=== PATIENT | female | born 1960 | race Hispanic/Latino ===

== ENCOUNTER → 2017-10-27 | Outpatient (CLI) | payer OTHER | END | disposition home or self-care (01) | LOC: RAH 12:03 | PROVIDERS: ATTEND Family Medicine | DX: I10 Essential (primary) hypertension (principal) | CPT/HCPCS: 71046 ==

== ENCOUNTER → 2017-11-01 | Outpatient (CLI) | payer OTHER | END | disposition home or self-care (01) | LOC: RAH 13:44 → EDUNIT# 15:40 | PROVIDERS: ATTEND Family Medicine | DX: Z12.31 Encounter for screening mammogram for malignant neoplasm of breast (principal) | CPT/HCPCS: 77067 ==

== ENCOUNTER 2018-10-27 22:52 | Emergency (ER) | payer OTHER ==
[~2018-10-27 22:52] MED LIST: ACET1TAB27 PO; ALPR-412 PO; CETI10TA86 PO; LEVO50TA11 PO; ONDA8TAB11 PO; QUET100T70 PO; RANI150T7 PO
[2018-10-27] MEDS ORDERED: ONDANSETRON HCL 4 MG/2 ML VIAL ONE (22:59)
[2018-10-27] MEDS ORDERED: MORPHINE SULFATE 4 MG/1ML SYG ONE (22:59)
[2018-10-27] MEDS ORDERED: SODIUM CHLORIDE 0.9% 1000ML 1,000 ML IV ONE (23:00)
[2018-10-27 23:23] LABS: BASOPHILS % (AUTO) 1.3 % (0.0-5.0); CREATININE 0.8 mg/dL (0.5-1.5); EOSINOPHILS % (AUTO) 1.2 % (0.0-8.0); HEMATOCRIT 38.4 % (36-48); LYMPHOCYTES % (AUTO) 30.1 % (21.0-51.0); MEAN CORPUSCULAR HEMOGLOBIN 28.9 pg (27.0-33.0); MEAN CORPUSCULAR HGB CONC 32.9 g/dL (32.0-36.0); MEAN CORPUSCULAR VOLUME 87.8 fL (79-99); MONOCYTES % (AUTO) 6.3 % (3.0-13.0); NEUTROPHILS % (AUTO) 61.1 % (40.0-77.0); PLATELET COUNT (AUTO) 369 K/uL (130-400); RED BLOOD CELL COUNT(AUTO) 4.37 MIL/uL (4.00-5.50); RED CELL DISTRIBUTION WIDTH 18.5 % (11.0-15.5); WHITE BLOOD COUNT (AUTO) 12.4 K/uL (4.8-10.8)
[2018-10-27 23:28] LABS: ALBUMIN 3.3 g/dL (3.5-5.0); BILIRUBIN,TOTAL 0.3 mg/dL (0.2-1.0); TOTAL PROTEIN, SERUM 7.3 g/dL (6.0-8.3)
[2018-10-27 23:32] LABS: APPEARANCE,URINE Cloudy (CLEAR); BILIRUBIN,URINE Negative (NEGATIVE); COLOR,URINE Yellow (YELLOW); GLUCOSE, URINE (UA) Negative (NEGATIVE); KETONES,URINE Trace mg/dL (NEGATIVE); LEUKOCYTE ESTERASE ,URINE Small (NEGATIVE); NITRATE,URINE Negative (NEGATIVE); OCCULT BLOOD,URINE Nonhemolyzed Trace (NEGATIVE); PROTEIN,URINE Negative (NEGATIVE)
[2018-10-27 23:41] LABS: BACTERIA,URINE None Seen /HPF (None Seen); CALCIUM OXALATE CRYSTALS,UR Moderate /LPF (None Seen); MUCUS,URINE Few LPF (None Seen); SQUAMOUS EPITHELIAL CELL,UR Rare /HPF (0-2)
== END 2018-10-28 00:30 | disposition home or self-care (01) ==
LOC: EDH 22:52
DX: A08.39 Other viral enteritis (principal); K59.00 Constipation, unspecified; Z88.0 Allergy status to penicillin; Z88.6 Allergy status to analgesic agent; Z88.1 Allergy status to other antibiotic agents; Z88.8 Allergy status to other drugs, medicaments and biological substances; Z72.0 Tobacco use
CPT/HCPCS: 36415; 74176; 80053; 81001; 83690; 84484; 85025; 93005; 96374; 96375; 99285; J2270; J2405; J7030

== ENCOUNTER 2018-12-22 07:01 | Emergency (ER) | payer OTHER, MEDICARE ==
[2018-12-22] MEDS ORDERED: ORPHENADRINE CITRATE 30 MG/ML ML ONE (07:39)
[2018-12-22] MEDS ORDERED: LIDOCAINE 5% TOPICAL PATCH TP ONE (07:40)
[2018-12-22 08:06] LABS: BASOPHILS % (AUTO) 1.1 % (0.0-5.0); EOSINOPHILS % (AUTO) 1.5 % (0.0-8.0); HEMATOCRIT 41.1 % (36-48); LYMPHOCYTES % (AUTO) 35.5 % (21.0-51.0); MEAN CORPUSCULAR HGB CONC 32.9 g/dL (32.0-36.0); MEAN CORPUSCULAR VOLUME 91.1 fL (79-99); MONOCYTES % (AUTO) 5.7 % (3.0-13.0); NEUTROPHILS % (AUTO) 56.2 % (40.0-77.0); NUCLEATED RED BLOOD CELLS 0.1 % (0.0-0.19); PLATELET COUNT (AUTO) 286 K/uL (130-400); RED BLOOD CELL COUNT(AUTO) 4.51 MIL/uL (4.00-5.50); RED CELL DISTRIBUTION WIDTH 17.1 % (11.0-15.5); WHITE BLOOD COUNT (AUTO) 6.7 K/uL (4.8-10.8)
[2018-12-22 08:11] LABS: APPEARANCE,URINE Clear (CLEAR); BILIRUBIN,URINE Negative (NEGATIVE); COLOR,URINE Yellow (YELLOW); GLUCOSE, URINE (UA) Negative (NEGATIVE); KETONES,URINE Negative (NEGATIVE); LEUKOCYTE ESTERASE ,URINE Trace (NEGATIVE); NITRATE,URINE Negative (NEGATIVE); OCCULT BLOOD,URINE Trace (NEGATIVE); PROTEIN,URINE Negative (NEGATIVE)
[2018-12-22 08:16] LABS: CREATININE 0.7 mg/dL (0.5-1.5); POTASSIUM 3.6 mmol/L (3.5-5.1)
[2018-12-22 08:22] LABS: ALBUMIN 3.6 g/dL (3.5-5.0); BILIRUBIN,DIRECT 0.1 mg/dL (0.0-0.3); BILIRUBIN,TOTAL 0.4 mg/dL (0.2-1.0)
[2018-12-22 08:50] LABS: BACTERIA,URINE Rare /HPF (None Seen); RBC,URINE 0-1 /HPF (0-1); SQUAMOUS EPITHELIAL CELL,UR Rare /HPF (0-2)
[2018-12-22] MEDS ORDERED: KETOROLAC TROMETHAMINE 60 MG/2 ML VIAL ONE (08:55)
[2018-12-22] MEDS ORDERED: SODIUM CHLORIDE 0.9% 500ML 500 ML IV ONE (08:56)
[2018-12-22] MEDS ORDERED: SODIUM CHLORIDE 0.9% 1000ML 1,000 ML IV ONE (08:56)
[2018-12-22] MEDS ORDERED: ONDANSETRON HCL 4 MG/2 ML VIAL ONE (09:02)
[2018-12-22 09:56] LABS: ERYTHROCYTE SEDIMENTATION RATE 27 MM/HR (0-30)
[2018-12-22] MEDS ORDERED: DEXAMETHASONE SOD PHOSPHATE 10MG/ML 1ML VIAL ONE (10:46)
== END 2018-12-22 11:45 | disposition home or self-care (01) ==
LOC: EDH 07:01
DX: M54.41 Lumbago with sciatica, right side (principal); F41.9 Anxiety disorder, unspecified; K21.9 Gastro-esophageal reflux disease without esophagitis; Z98.84 Bariatric surgery status; Z72.0 Tobacco use; Z88.0 Allergy status to penicillin; Z88.2 Allergy status to sulfonamides; Z88.5 Allergy status to narcotic agent; Z88.8 Allergy status to other drugs, medicaments and biological substances
CPT/HCPCS: 36415; 74018; 76770; 80048; 80076; 81001; 85025; 85651; 96374; 96375; 99285; J1100; J1885; J2360; J2405; J7030; J7040

== ENCOUNTER → 2018-12-27 | Outpatient (CLI) | payer OTHER, MEDICARE | END | disposition home or self-care (01) | LOC: OIH 13:47 | PROVIDERS: ATTEND Family Medicine | DX: M47.816 Spondylosis without myelopathy or radiculopathy, lumbar region (principal); M54.41 Lumbago with sciatica, right side; M16.0 Bilateral primary osteoarthritis of hip; I70.0 Atherosclerosis of aorta; M85.88 Other specified disorders of bone density and structure, other site; Z90.49 Acquired absence of other specified parts of digestive tract | CPT/HCPCS: 72100; 73521 ==

== ENCOUNTER → 2019-03-04 | Outpatient (CLI) | payer OTHER ==
[~2019-03-04] MED LIST changes: -ONDA8TAB11 PO; +ONDA8TAB65 PO
== END | disposition home or self-care (01) ==
LOC: RAH 15:00
PROVIDERS: ATTEND Family Medicine
DX: Z12.31 Encounter for screening mammogram for malignant neoplasm of breast (principal)
CPT/HCPCS: 77067

== ENCOUNTER 2020-11-16 06:22 | Observation (INO) | payer OTHER ==
[2020-11-11 10:35] LABS: BASOPHILS % (AUTO) 0.5 % (0.0-5.0); EOSINOPHILS % (AUTO) 1.1 % (0.0-8.0); HEMATOCRIT 35.4 % (36-48); LYMPHOCYTES % (AUTO) 28.9 % (21.0-51.0); MEAN CORPUSCULAR HEMOGLOBIN 23.6 pg (27.0-33.0); MEAN CORPUSCULAR HGB CONC 30.5 g/dL (32.0-36.0); MEAN CORPUSCULAR VOLUME 77.5 fL (79-99); NEUTROPHILS % (AUTO) 63.1 % (40.0-77.0); PLATELET COUNT (AUTO) 308 K/uL (130-400); RED BLOOD CELL COUNT(AUTO) 4.57 MIL/uL (4.00-5.50); RED CELL DISTRIBUTION WIDTH 19.3 % (11.0-15.5); WHITE BLOOD COUNT (AUTO) 8.2 K/uL (4.8-10.8)
[2020-11-11 10:42] LABS: CREATININE 0.7 mg/dL (0.5-1.5)
[2020-11-11 10:46] LABS: PROTHROMBIN TIME 10.9 SEC (9.6-11.6)
[2020-11-11 10:55] LABS: APPEARANCE,URINE Clear (CLEAR); BILIRUBIN,URINE Negative (NEGATIVE); COLOR,URINE Yellow (YELLOW); GLUCOSE, URINE (UA) Negative (NEGATIVE); KETONES,URINE Negative (NEGATIVE); LEUKOCYTE ESTERASE ,URINE Moderate (NEGATIVE); NITRATE,URINE Negative (NEGATIVE); OCCULT BLOOD,URINE Negative (NEGATIVE); PH,URINE 6.5 (5.0-8.0); PROTEIN,URINE Negative (NEGATIVE)
[2020-11-11 11:06] LABS: BACTERIA,URINE Rare /HPF (None Seen); RBC,URINE 0-1 /HPF (0-1); WBC,URINE 0-1 /HPF (0-1)
[2020-11-11 11:07] LABS: SQUAMOUS EPITHELIAL CELL,UR Few /HPF (0-2)
[2020-11-12 11:38] VITALS: BP 148/69
[~2020-11-16] VITALS: Ht 160 cm; Wt 113.5 kg
[2020-11-16] VITALS (22 sets, daily range): BP systolic 131–185; BP diastolic 59–114
[~2020-11-16 06:22] MED LIST changes: -ALPR-412 PO; +ALPR2TAB7 PO; -CETI10TA86 PO; +DULO60CA64 PO; +LEVO50CA4 PO; -LEVO50TA11 PO; +MELO-106 PO; +MONT10TA32 PO; +OMEP-91 PO; +PREG150C PO; +QUET100T34 PO; -QUET100T70 PO; -RANI150T7 PO
[2020-11-16] MEDS ORDERED: LACTATED RINGERS 1000ML 1,000 ML IV ONE (08:17)
[2020-11-16] MEDS ORDERED: CLINDAMYCIN IVPB 900MG/50ML 50 ML IV ONE (08:17)
[2020-11-16] MEDS ORDERED: ONDANSETRON 4MG INJ ONE (12:06)
[2020-11-16] MEDS ORDERED: LIDOCAINE PF 100MG/5ML (2%) SYRINGE 5ML ONE (12:06)
[2020-11-16] MEDS ORDERED: SUCCINYLCHOLINE CHLORIDE 20 MG/ML 10 ML VIAL ONE (12:06)
[2020-11-16] MEDS ORDERED: DEXAMETHASONE SOD PHOSPHATE 10MG/ML 1ML VIAL ONE (12:07)
[2020-11-16] MEDS ORDERED: ROCURONIUM 10MG/1ML SYR 10 MG/ML ML ONE (12:07)
[2020-11-16] MEDS ORDERED: GLYCOPYRROLATE 1 MG/5 ML SYRINGE ONE (12:07)
[2020-11-16] MEDS ORDERED: MIDAZOLAM HCL 1 MG/ML 2ML VIAL ONE (12:07)
[2020-11-16] MEDS ORDERED: NEOSTIGMINE 5MG/5ML SYR IV ONE (12:07)
[2020-11-16] MEDS ORDERED: PROPOFOL 10 MG/ML 20ML VIAL IV ONE ×2 (12:07→14:15)
[2020-11-16] MEDS ORDERED: FENTANYL CITRATE PF 50 MCG/1 ML 2ML VIAL ONE ×3 (12:08→15:09)
[2020-11-16] MEDS ORDERED: MEPERIDINE-PF 25 MG/ML SYG ONE ×3 (12:11→15:27)
[2020-11-16] MEDS ORDERED: ROPIVACAINE 0.5% 5MG/ML 30ML IJ ONE (12:13)
[2020-11-16] MEDS ORDERED: CLINDAMYCIN 900MG/6ML INJ ONE (12:13)
[2020-11-16] MEDS ORDERED: TRANEXAMIC ACID 1000MG/10ML ONE (12:13)
[2020-11-16] MEDS ORDERED: KETAMINE HCL 100 MG/ML 5ML VIAL IJ ONE (12:14)
[2020-11-16] MEDS ORDERED: 0.9%NACL 1000ML 1,000 ML IV SCH (14:30)
[2020-11-16] MEDS: ACETAMINOPHEN 500 MG TABLET PO SCH ×2 (14:30→19:42)
[2020-11-16] MEDS ORDERED: KCL 20 MEQ ERTAB PO PRN (14:30)
[2020-11-16] MEDS ORDERED: POTASSIUM CHLORIDE 20MEQ/100ML 100 ML IV PRN (14:30)
[2020-11-16] MEDS ORDERED: CALCIUM CARB 500MG PO PRN (14:30)
[2020-11-16] MEDS ORDERED: LIDOCAINE HCL-MPF 1% 2ML VIAL IV PRN (14:30)
[2020-11-16] MEDS ORDERED: OXYCODONE HCL 5 MG TAB PO PRN (14:30)
[2020-11-16] MEDS ORDERED: POTASSIUM CHLORIDE 10% ELIXIR 20 MEQ/15 ML UDCUP PO PRN (14:30)
[2020-11-16] MEDS ORDERED: FERROUS FUMARATE 324 MG TABLET PO PRN (14:30)
[2020-11-16] MEDS ORDERED: ONDANSETRON 4MG INJ IVP PRN (14:30)
[2020-11-16] MEDS ORDERED: DiphenhydrAMINE HCL 50 MG/ML VIAL IVP PRN (14:30)
[2020-11-16] MEDS: OXYCODONE HCL 5 MG TAB PO PRN ×2 (16:05→19:43)
[2020-11-16] MEDS: KETOROLAC 15MG/ML VIAL (15MG/ML) IV PRN (17:58)
[2020-11-16] MEDS ORDERED: ONDANSETRON 4MG TABLET PO PRN (19:30)
[2020-11-16] MEDS ORDERED: APIXABAN 2.5 MG TABLET PO ONE (19:33)
[2020-11-16] MEDS: CLINDAMYCIN IVPB 900MG/50ML 50 ML IVPB SCH (19:43)
[2020-11-16] MEDS: QUETIAPINE FUMARATE 100 MG TAB PO SCH (21:14)
[2020-11-16] MEDS: DULOXETINE HCL 30 MG CAP PO SCH (21:14)
[2020-11-16] MEDS: PREGABALIN 75 MG CAPSULE PO SCH (21:14)
[2020-11-16] MEDS: ALPRAZOLAM 1 MG TAB PO SCH (21:14)
[2020-11-17 00:12] VITALS: BP 106/51
[2020-11-17] MEDS: CLINDAMYCIN IVPB 900MG/50ML 50 ML IVPB SCH (02:30)
[2020-11-17] MEDS: OXYCODONE HCL 5 MG TAB PO PRN ×4 (02:33→18:21)
[2020-11-17] MEDS ORDERED: LEVOTHYROXINE 50 MCG TABLET ONE (03:56)
[2020-11-17 04:12] VITALS: BP 131/70
[2020-11-17 04:17] LABS: HEMATOCRIT 31.2 % (36-48); MEAN CORPUSCULAR HGB CONC 30.1 g/dL (32.0-36.0); MEAN CORPUSCULAR VOLUME 76.5 fL (79-99); RED BLOOD CELL COUNT(AUTO) 4.08 MIL/uL (4.00-5.50); RED CELL DISTRIBUTION WIDTH 18.8 % (11.0-15.5); WHITE BLOOD COUNT (AUTO) 9.1 K/uL (4.8-10.8)
[2020-11-17 04:37] LABS: CREATININE 0.7 mg/dL (0.5-1.5); POTASSIUM 4.2 mmol/L (3.5-5.1)
[2020-11-17] MEDS: ACETAMINOPHEN 500 MG TABLET PO SCH ×3 (06:18→19:47)
[2020-11-17] MEDS: LEVOTHYROXINE 50 MCG TABLET PO SCH (06:18)
[2020-11-17 08:00] VITALS: BP 136/77
[2020-11-17] MEDS: PREGABALIN 75 MG CAPSULE PO SCH ×2 (08:14→19:46)
[2020-11-17] MEDS: DULOXETINE HCL 30 MG CAP PO SCH ×2 (08:14→19:46)
[2020-11-17] MEDS: APIXABAN 2.5 MG TABLET PO SCH ×2 (08:14→19:46)
[2020-11-17] MEDS: ALPRAZOLAM 1 MG TAB PO SCH ×2 (08:14→19:46)
[2020-11-17] MEDS: POLYETHYLENE GLYCOL 3350 17 GM POWD.PACK PO SCH (08:15)
[2020-11-17] MEDS: FAMOTIDINE 20MG TAB PO SCH (08:15)
[2020-11-17] MEDS: TRAMADOL HCL 50 MG TABLET PO PRN (08:15)
[2020-11-17] MEDS: MONTELUKAST SODIUM 10 MG TAB PO SCH (08:16)
[2020-11-17 12:00] VITALS: BP 126/94
[2020-11-17] MEDS: KETOROLAC 15MG/ML VIAL (15MG/ML) IV PRN (12:55)
[2020-11-17 16:00] VITALS: BP 117/70
[2020-11-17] MEDS: QUETIAPINE FUMARATE 100 MG TAB PO SCH (19:46)
[2020-11-17 20:12] VITALS: BP 98/53
[2020-11-18 00:16] VITALS: BP 112/57
[2020-11-18] MEDS: OXYCODONE HCL 5 MG TAB PO PRN ×4 (01:30→17:37)
[2020-11-18] MEDS: KETOROLAC 15MG/ML VIAL (15MG/ML) IV PRN ×3 (02:29→16:38)
[2020-11-18 04:16] VITALS: BP 132/61
[2020-11-18] MEDS: ACETAMINOPHEN 500 MG TABLET PO SCH ×2 (06:29→14:30)
[2020-11-18] MEDS: LEVOTHYROXINE 50 MCG TABLET PO SCH (06:29)
[2020-11-18 07:47] VITALS: BP 128/80
[2020-11-18] MEDS: DULOXETINE HCL 30 MG CAP PO SCH (08:17)
[2020-11-18] MEDS: PREGABALIN 75 MG CAPSULE PO SCH (08:17)
[2020-11-18] MEDS: APIXABAN 2.5 MG TABLET PO SCH (08:18)
[2020-11-18] MEDS: ALPRAZOLAM 1 MG TAB PO SCH (08:18)
[2020-11-18] MEDS: MONTELUKAST SODIUM 10 MG TAB PO SCH (08:18)
[2020-11-18] MEDS: FAMOTIDINE 20MG TAB PO SCH (08:18)
[2020-11-18] MEDS: POLYETHYLENE GLYCOL 3350 17 GM POWD.PACK PO SCH (08:19)
[2020-11-18 11:15] VITALS: BP 126/71
[2020-11-18] MEDS ORDERED: APIX2.5T PO (15:53)
[2020-11-18] MEDS ORDERED: HYDR-4060 PO (15:53)
[2020-11-18 16:12] VITALS: BP 136/68
[2020-11-18] MEDS: TRAMADOL HCL 50 MG TABLET PO PRN (16:39)
[2020-11-19] MEDS ORDERED: BISACODYL 10 MG SUPP.RECT RC PRN (14:30)
== END 2020-11-18 18:21 | disposition home health service (06) ==
LOC: DAH 06:22 → DAHIP 06:23 → 4AH 15:52
PROVIDERS: ADMIT Orthopaedic Surgery; ATTEND Orthopaedic Surgery
DX: M17.11 Unilateral primary osteoarthritis, right knee (principal); Z20.822 Contact with and (suspected) exposure to COVID-19; D62 Acute posthemorrhagic anemia; E03.9 Hypothyroidism, unspecified; F17.200 Nicotine dependence, unspecified, uncomplicated; Z96.653 Presence of artificial knee joint, bilateral; Z98.84 Bariatric surgery status; Z88.0 Allergy status to penicillin; Z79.899 Other long term (current) drug therapy
CPT/HCPCS: 36415; 80048; 81001; 84703; 85025; 85027; 85610; 86850; 86900; 86901; 87088; 87635; 87641; 88305; 88311; 96361; 96365; 96366; 96375; 96376; 97039; C9803; G0378; J0330; J1100; J1885; J2001; J2175; J2250; J2405; J2704; J2710; J2795; J3010; J3490; J7120